=== PATIENT | female | born 1955 | race Caucasian/White ===

== ENCOUNTER 2017-01-26 14:00 | Observation (INO) ==
[2017-01-26] MEDS ORDERED: Ondansetron 4 MG/2 ML VIAL IVP PRN (16:43)
[2017-01-26] MEDS ORDERED: Nitroglycerin 0.4 MG TAB.SUBL SL PRN (16:43)
[2017-01-26] MEDS ORDERED: *HR* Morphine 2 MG/ML SYRINGE IVP PRN (16:43)
[2017-01-26] MEDS: *HR* Enoxaparin 120 MG/0.8 ML SYRINGE SQ SCH (18:37)
[2017-01-26] MEDS: *HR* Metformin 500 MG TABLET PO SCH (18:37)
[2017-01-26] MEDS ORDERED: Metoprolol XL (24 HR) Succ 25 MG TAB.ER.24H PO SCH (21:00)
[2017-01-27 01:47] LABS: Basophils # 0.1 K/mcL (0.0-0.2); Basophils % 0.6 %; Eosinophils # 0.2 K/mcL (0.0-0.6); Eosinophils % 2.7 %; Hemoglobin 14.6 g/dL (11.5-15.4); Immature Granulocytes % 0.1 % (0-4); Lymphocytes # 3.6 K/mcL (0.6-4.6); Lymphocytes % 42.7 %; Mean Corpuscular Hemoglobin 28.8 pg (28.0-33.3); Mean Corpuscular Volume 84.8 fL (83.0-100.0); Mean Platelet Volume 9.5 fL (9.4-12.4); Monocytes # 0.6 K/mcL (0.0-1.3); Monocytes % 6.9 %; Neutrophils # 3.9 K/mcL (1.6-8.9); Platelet Count 246 K/mcL (140-400); Red Blood Count 5.07 M/mcL (3.82-4.97); Red Cell Distribution Width 13.4 % (11.5-14.5)
[2017-01-27 01:59] LABS: BUN/Creatinine Ratio 15 (6-26); Blood Urea Nitrogen 15 mg/dL (7-20); Calcium 9.4 mg/dL (8.6-10.8); Carbon Dioxide 31 mEq/L (19-29); Chloride 99 mEq/L (98-109); Glucose 117 mg/dL (70-99); Osmolality,Calculated 288 (280-300); Potassium 3.7 mEq/L (3.5-4.5); Sodium 138 mEq/L (136-145); eGFR For African Americans > 60 (> 60); eGFR For Non-African Americans 56 (> 60)
[2017-01-27] MEDS: *HR* Enoxaparin 120 MG/0.8 ML SYRINGE SQ SCH (05:19)
[2017-01-27] MEDS: *HR* Metformin 500 MG TABLET PO SCH (08:18)
--- NOTE | 2017-01-27 08:44 | Cardiology History & Physical ---
Date of Encounter: 01/27/17 Time of Encounter: 08:40 Assessment and Plan (1) Unstable angina Current Visit: Yes Status: Acute Serial troponin ruled out [place]. Plan for stress test for risk stratification with multiple CV risk factors. If stress test is abnormal, plan on [facility] early tomorrow morning. A/R/B of [facility] discussed including 1% chance of TX//CVA/ CABG/TONI/bleeding. Patient aware and agreeable with plan. The assessment and plan as outlined above was discussed with the patient and/or family members who expressed understanding and agreement. All questions were answered. (2) HTN (hypertension) Current Visit: No Status: Chronic controlled The assessment and plan as outlined above was discussed with the patient and/or family members who expressed understanding and agreement. All questions were answered. Qualifiers: Hypertension type: essential hypertension Qualified Code(s): I10 - Essential (primary) hypertension (3) Diabetes Current Visit: No Status: Chronic qid fs ssi The assessment and plan as outlined above was discussed with the patient and/or family members who expressed understanding and agreement. All questions were answered. Qualifiers: Diabetes mellitus type: type 2 Diabetes mellitus complication status: without complication Diabetes mellitus skilled nursing insulin use: without skilled nursing use Qualified Code(s): E11.9 - Type 2 diabetes mellitus without complications History of Present Illness Chief complaint: chest discomfort on exertion HPI: Ms. Brewer is a 61 year old female with no previous cardiac history but CV RF of diabetes, HTN, dyslipidemia presents with severe retrosternal left chest pressure with mild exertion. Improved with NTG and no radiation of the pain. It is associated with headache and diaphoresis. This has been slowly worsening over last couple of months. She denies history of smoking. She denies syncope. She was at [facility] but unable to be discharged because of significant symptoms preventing her from ambulating. [facility] does not have stress test capability over the weekend and no roving tester laboratory. Her physician there thought her symptoms were severe and could not be discharged, so recommended that she be transferred to a facility that could provide better workup of her symptoms. Of note, she had 2 troponin at [facility] that were normal. Past Med Surg Social Fam HX - Past Medical History Medical history: diabetes, hyperlipidemia, hypertension Psychiatric history: anxiety, depression - Past Surgical History Surgical History: , herniorrhaphy, hysterectomy, other - Social History Smoking Status: Never smoker Smokeless Tobacco Status: No Alcohol use: occasionally Drug use: none - Family History Mother Adopted: No Living Status: Cause of : stroke Hx Family Cardiac Disorders: Yes (hypertension) Medications and Allergies Losartan [Cozaar] 25 mg PO HS 02/25/15 [History] Triamterene/HCTZ 37.5/25mg [Dyazide] 1 each PO QAM 02/25/15 [History] metFORMIN [Glucophage] 500 mg PO TID 02/25/15 [History] Aspirin 81 mg PO DAILY 06/01/16 [History] Atorvastatin [Lipitor] 40 mg PO HS 06/01/16 [History] Cilostazol [Pletal] 100 mg PO BID 06/01/16 [History] GlipiZIDE [Glipizide ER] 10 mg PO BID 06/01/16 [History] Metoprolol XL (24 HR) Succ [Toprol Xl] 25 mg PO HS 06/01/16 [History] Nitroglycerin [Nitrostat] 0.4 mg SL Q5M PRN 06/01/16 [History] [place]'s Wort 300 mg PO TID 06/01/16 [History] DULoxetine [Cymbalta] 20 mg PO DAILY 01/26/17 [History] Duloxetine HCl [Cymbalta] 60 mg PO DAILY 01/26/17 [History] [place]-3/Dha/Epa/Fish Oil [Fish Oil 1,000 mg Softgel] 1 cap PO DAILY 01/26/17 [ History] Pregabalin [Lyrica] 50 mg PO BID 01/26/17 [History] Vitamin E Acetate [Vitamin E] 400 unit PO DAILY 01/26/17 [History] Allergies aspartame Adverse Reaction (Verified 06/01/16 10:21) Headache gabapentin Adverse Reaction (Verified 01/26/17 17:10) Gastrointestinal Upset All Systems Review: A 10-system review of systems was performed and is negative for pertinent findings except as documented above in the HPI. - Constitutional Constitutional: no chills, no fever(s) - EENT Eyes: no blurred vision, no loss of vision Nose, mouth and throat: no bleeding gums, no epistaxis - Cardiovascular Cardiovascular: chest pain with exertion, dyspnea on exertion - Respiratory Respiratory: no hemoptysis, no wheezing - Gastrointestinal Gastrointestinal: no hematemesis, no hematochezia - Genitourinary Genitourinary: no hematuria, no nocturia - Musculoskeletal Musculoskeletal: no arthralgias, no myalgias - Integumentary Integumentary: no erythema, no rash - Neurological Neurological: no abnormal speech, no memory loss - Psychiatric Psychiatric: no anxiety, no depression - Hematological/Lymphatic Hematologic/Lymphatic: no easy bleeding, no easy bruising Physical Examination Vital Signs, Last 4 Hours Temp Pulse Resp BP Pulse Ox 01/27/17 06:44 98.8 F 74 16 114/68 98 General: Conversant HEENT: Atraumatic Neck: No JVD Cardiac: Reg Rate and Rhythm Lungs: Normal Breath Sounds Neuro: Alert and responsive Abdomen: Soft Skin: No rashes noted on visualized skin Musculoskeletal: No Chest Wall Tenderness Extremities: No Edema Results 01/27/17 01:21 01/27/17 01:21 Lab Results 01/27/17 01/27/17 01:21 01:21 WBC 8.4 Hgb 14.6 Hct 43.0 Plt Count 246 Sodium 138 Potassium 3.7 Chloride 99 Carbon Dioxide 31 H BUN 15 Creatinine 1.01 Glucose 117 H Calcium 9.4 - EKG Interpretation EKG results cardiology: personally reviewed, normal ECG, no diagnostic ischemia
[2017-01-27] MEDS ORDERED: Aspirin 81 MG TAB.CHEW PO SCH (09:00)
[2017-01-27] MEDS ORDERED: D5% in Water 1,000 ML IVC PRN (09:45)
[2017-01-27] MEDS ORDERED: Dextrose Gel 15 GM PO PRN ×2 (09:45)
[2017-01-27] MEDS ORDERED: *HR* Dextrose 50 % in Water (Syg) 50 ML SYRINGE IVP PRN (09:45)
[2017-01-27 11:08] VITALS: BP 118/73
[2017-01-27] MEDS ORDERED: Insulin LISPRO 300 UNITS/3 ML VIAL SQ SCH ×2 (11:30→21:00)
--- NOTE | 2017-01-27 12:16 | Nuclear Medicine Stress Report ---
Exercise Nuclear Stress Name: Chata Brewer Date of Study: 01/27/2017 Date: 1955 Ht: 66.0 in Medical Record#: [id number] Age: 61 Wt: 235.0 lb Gender: Female Order #: [id number] Location: [facility] OP Room: [facility] Supervising Provider: Hiram Barriga CNP Reading Physician: Marino López MD, [facility] Ordering Physician: Marino López MD, [facility] Primary Care Physician: Sunshine Jean CNP Stress Technologist: Nohemy Mclaughlin RRT [place] Pumper: Bowen Contreras Indications: Chest Pain Impression: Perfusion imaging was negative for ischemia or infarct. Pharmacologic ECG was non diagnostic for ischemia. No arrhythmias noted with stress. Gated EF = >70%. There is no evidence of TID. History: Hypertension Diabetes Hypercholesteremia Stress Test Summary: Stress Test Type: Treadmill Protocol: Marino Baseline Information: Initial Heart Rate: 78 Blood Pressure: 108/64 Stress Information: Stress Time: 4 min 38 sec Test Terminated Due to (primary): Dyspnea Maximum Blood Pressure: 138/90 Maximum Heart Rate: 142 Percent Maximum Heart Rate Achieved: 89 Double Product: [id number] METS Reached: 7 Symptoms: Shortness of breath, weakness Nuclear Summary: SPECT myocardial perfusion imaging using Tc99m Sestamibi given intravenously was performed at rest and following cardiac stress testing. The resting images were obtained following initial dose of 11.8 mCi. Following stress an additional dose of 34.9 mCi was given at peak exercise or 30 seconds post regadenoson infusion. Medication Given: Time Medication Dose Units Route Findings: Stress Note * Resting ECG demonstrated normal sinus rhythm. * No baseline arrhythmias were noted. * Pharmacologic stress ECG is non diagnostic for ischemia due to failure to reach target heartrate. * No arrhythmias were noted during stress. Hemodynamic responses * Normal hemodynamic responses to pharmacologic stress. Study Quality * Study quality is average. Gated EF > 70% * Gated EF > 70%. Left Ventricle * The left ventricle is not dilated. NORMALS * Normal wall motion. * Normal segmental perfusion in stress. * Normal Segmental Perfusion in rest. TID * No evidence of transient ischemic dilatation. Updated by Marino López MD, [facility] on 01/27/2017 12:09:06 PM electronically signed on 01/27/2017 12:09:27 PM with status of Final
[2017-01-27] MEDS ORDERED: Isosorbide MONOnitrate (24 HR) 60 MG TAB.ER.24H PO SCH (12:30)
--- NOTE | 2017-01-27 14:40 | Discharge Summary ---
Date of Encounter: 01/27/17 Time of Encounter: 14:30 - Discharge Diagnosis (1) Unstable angina Priority: Primary (n) Status: Acute Comments: Ruled out for [place]. Stress test shows no ischemia or TID. Start Imdur, continue aspirin and followup in clinic. (2) HTN (hypertension) Priority: Secondary (n) Status: Chronic Comments: controlled Qualifiers: Hypertension type: essential hypertension Qualified Code(s): I10 - Essential (primary) hypertension (3) Diabetes Priority: Secondary (n) Status: Chronic Comments: Resume home meds Qualifiers: Diabetes mellitus type: type 2 Diabetes mellitus complication status: without complication Diabetes mellitus mcc insulin use: without manager long term care use Qualified Code(s): E11.9 - Type 2 diabetes mellitus without complications - Discharge Medications Home Medications: Losartan [Cozaar] 25 mg PO HS 02/25/15 [History] Triamterene/HCTZ 37.5/25mg [Dyazide] 1 each PO QAM 02/25/15 [History] metFORMIN [Glucophage] 500 mg PO TID 02/25/15 [History] Aspirin 81 mg PO DAILY 06/01/16 [History] Atorvastatin [Lipitor] 40 mg PO HS 06/01/16 [History] Cilostazol [Pletal] 100 mg PO BID 06/01/16 [History] GlipiZIDE [Glipizide ER] 10 mg PO BID 06/01/16 [History] Metoprolol XL (24 HR) Succ [Toprol Xl] 25 mg PO HS 06/01/16 [History] Nitroglycerin [Nitrostat] 0.4 mg SL Q5M PRN 06/01/16 [History] [place]'s Wort 300 mg PO TID 06/01/16 [History] DULoxetine [Cymbalta] 20 mg PO DAILY 01/26/17 [History] Duloxetine HCl [Cymbalta] 60 mg PO DAILY 01/26/17 [History] [place]-3/Dha/Epa/Fish Oil [Fish Oil 1,000 mg Softgel] 1 cap PO DAILY 01/26/17 [ History] Pregabalin [Lyrica] 50 mg PO BID 01/26/17 [History] Vitamin E Acetate [Vitamin E] 400 unit PO DAILY 01/26/17 [History] Isosorbide MONOnitrate (24 HR) [Imdur] 60 mg PO DAILY #0 01/27/17 [Rx] Allergies/Adverse Reactions: Allergies aspartame Adverse Reaction (Verified 06/01/16 10:21) Headache gabapentin Adverse Reaction (Verified 01/26/17 17:10) Gastrointestinal Upset Procedures/tests Complete & Pending: Procedures Performed prior 72 hours Category Date Time Status NM leelee perf SPECT multi [NM] Routine Exams 01/27/17 09:20 Taken ECG 12 lead ECG [ECG] Routine Y 01/26/17 16:43 Ordered ECG 12 lead ECG [ECG] Routine Y 01/27/17 07:00 Ordered ECG 12 lead ECG [ECG] Stat Y 01/26/17 16:43 Completed EV echocardiogram Routine Y 01/27/17 10:00 Completed SP exercise nuclear stress Routine Y 01/26/17 16:46 Completed Date of admission: 01/26/17 16:04 Primary care physician: Sunshine Jean Consults: 01/26/17 16:43 Consult to Cardiac Rehabilitation-Phase1 [CONS] Routine Comment: Reason for Consult: AMI Call Completed: Yes Consult to Nurse Navigator [CONS] Routine Comment: Discharging clinician: Marino López Anticipated date of discharge: 01/27/17 - Patient Status Disposition: Home, Self-Care Condition: Good Functional capacity at discharge: independent ambulation Overall status at discharge: patient is back to baseline - Discharge Instructions Follow Up With: Sunshine Jean, MIKA [Primary Care Provider] - Additional Instructions: FOLLOW UP WITH PRIMARY IN 1- 2 WEEKS. - Diet and Activity Diet: diabetic diet - Hospital Course Hospital course: Ms. Brewer is a 61 year old female - Time Spent with Patient Total time spent providing and/or coordinating discharge services: Greater than 30 minutes Physical Examination General: Conversant HEENT: Atraumatic, Normocephaly Neck: No JVD Cardiac: Reg Rate and Rhythm Lungs: Normal Breath Sounds Neuro: Alert and responsive Abdomen: Soft Skin: No rashes noted on visualized skin Musculoskeletal: No Chest Wall Tenderness Extremities: No Edema
--- NOTE | 2017-01-27 19:01 | Electrocardiograph Report ---
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
== END 2017-01-27 15:48 | disposition home or self-care (01) ==
LOC: 3NENU
PROVIDERS: ADMIT Emergency Medicine; ATTEND Emergency Medicine

== ENCOUNTER 2017-08-17 12:35 | Observation (INO) ==
--- NOTE | 2017-08-17 13:07 | Emergency Department Note ---
Disposition Clinical Impression: Unstable angina, Chest pain Disposition: Admitted As Inpatient General Adult [facility] - General Chief complaint: ED Chest Pain Stated complaint: Chest pain Time Seen by Provider: 08/17/17 12:56 Source: patient Limitations: no limitations - History of Present Illness Pain Scale: 4 - Related Data Home Medications Medication Instructions Recorded Confirmed Losartan [Cozaar] 25 mg PO HS 02/25/15 08/17/17 Triamterene/HCTZ 37.5/25mg 1 tab PO QAM 02/25/15 08/17/17 [Dyazide] metFORMIN [Glucophage] 500 mg PO TID 02/25/15 08/17/17 Aspirin 81 mg PO DAILY 06/01/16 08/17/17 Atorvastatin [Lipitor] 40 mg PO HS 06/01/16 08/17/17 Cilostazol [Pletal] 100 mg PO BID 06/01/16 08/17/17 Metoprolol XL (24 HR) Succ [Toprol 25 mg PO HS 06/01/16 08/17/17 Xl] Altag[place]ia's Wort 300 mg PO TID 06/01/16 08/17/17 glipiZIDE [Glipizide ER] 10 mg PO BID 06/01/16 08/17/17 DULoxetine [Cymbalta] 20 mg PO HS 01/26/17 08/17/17 Duloxetine HCl [Cymbalta] 60 mg PO QAM 01/26/17 08/17/17 [place]-3/Dha/Epa/Fish Oil [Fish Oil 1 cap PO DAILY 01/26/17 08/17/17 1,000 mg Softgel] Pregabalin [Lyrica] 50 mg PO BID 01/26/17 08/17/17 Vitamin E Acetate [Vitamin E] 400 unit PO DAILY 01/26/17 08/17/17 Previous Rx's Medication Instructions Recorded Isosorbide MONOnitrate (24 HR) 60 mg PO DAILY #0 01/27/17 [Imdur] Clopidogrel [Plavix] 75 mg PO DAILY #30 tablet 08/09/17 Allergies Allergy/AdvReac Type Severity Reaction Status Date / Time aspartame AdvReac Headache Verified 06/01/16 10:21 gabapentin AdvReac Gastrointestinal Verified 01/26/17 17:10 Upset Past Medical History - Past Medical History Medical history: Reports: diabetes, hyperlipidemia, hypertension Surgical history: Reports: , herniorrhaphy, hysterectomy, other Psychiatric history: Reports: anxiety, depression 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 - Social History Smoking Status: Never smoker Smokeless Tobacco Status: No Alcohol use: Reports: occasionally Drug use: Reports: none Physical Exam - General Limitations: no limitations General appearance: alert Course Vital Signs Temperature 98.0 F 08/17/17 12:52 Pulse Rate 91 08/17/17 12:52 Respiratory Rate 18 08/17/17 12:52 Blood Pressure 120/75 08/17/17 12:52 O2 Sat by Pulse Oximetry 95 08/17/17 12:52 Temperature 98.1 F 08/17/17 18:55 Pulse Rate 82 08/17/17 18:55 Respiratory Rate 16 08/17/17 18:55 Blood Pressure 108/69 08/17/17 18:55 O2 Sat by Pulse Oximetry 96 08/17/17 18:55 Oxygen Delivery Oxygen Delivery Room Air Medical Decision Making - Lab Data Result diagrams: 08/17/17 13:11 08/17/17 13:11 Lab Results 08/17/17 08/17/17 08/17/17 Range/Units 13:11 13:11 13:11 WBC 8.3 (4.3-11.1) K/mcL RBC 5.14 H (3.82-4.97) M/mcL Hgb 14.7 (11.5-15.4) g/dL Hct 43.0 (35.3-44.9) % MCV 83.7 (83.0-100.0) fL MCH 28.6 (28.0-33.3) pg MCHC 34.2 (31.6-35.5) g/dL RDW 13.4 (11.5-14.5) % Plt Count 301 (140-400) K/mcL MPV 9.3 L (9.4-12.4) fL Immature Gran % 0.4 (0-4) % Seg Neutrophils % 63.7 % Lymphocytes % 25.4 % Monocytes % 5.9 % Eosinophils % 4.1 % Basophils % 0.5 % Neutrophils # 5.3 (1.6-8.9) K/mcL Lymphocytes # 2.1 (0.6-4.6) K/mcL Monocytes # 0.5 (0.0-1.3) K/mcL Eosinophils # 0.3 (0.0-0.6) K/mcL Basophils # 0.0 (0.0-0.2) K/mcL Sodium 138 (136-145) mEq/L Potassium 4.1 (3.5-5.1) mEq/L Chloride 103 (98-107) mEq/L Carbon Dioxide 25 (23-29) mEq/L BUN 18 (8-23) mg/dL Creatinine 0.81 (0.60-1.20) mg/dL Est GFR ( Amer) > 60 (> 60) Est GFR (Non-Af Amer) > 60 (> 60) BUN/Creatinine Ratio 22 (6-26) Glucose 106 H (70-105) mg/dL Calculated Osmolality 288 (280-300) Calcium 9.9 (8.6-10.3) mg/dL Troponin I < 0.03 (< 0.04) ng/mL Attestation Statement - Attestation Attestation: I examined this patient and my medical decision-making was reviewed with the Resident Physician. I agree with the documented findings, disposition and treatment plan as described except to the extent set forth below. [id number] time provided Patient presents with chest discomfort. She appears in no acute distress on exam. EKG reviewed by me upon arrival. I did review the transcribed report of her cardiac catheterization in which a drug eluding stent was placed to her mid LAD on 08/09/17. The patient was seen in conjunction with the resident physician Dr. Hinton
[2017-08-17] MEDS ORDERED: Aspirin 81 MG TAB.CHEW PO STA (13:09)
[2017-08-17] MEDS ORDERED: Nitroglycerin 0.4 MG TAB.SUBL SL PRN (13:09)
[2017-08-17 13:23] LABS: Basophils % 0.5 %; Eosinophils # 0.3 K/mcL (0.0-0.6); Eosinophils % 4.1 %; Hemoglobin 14.7 g/dL (11.5-15.4); Immature Granulocytes % 0.4 % (0-4); Lymphocytes # 2.1 K/mcL (0.6-4.6); Lymphocytes % 25.4 %; Mean Corpuscular HGB Conc 34.2 g/dL (31.6-35.5); Mean Corpuscular Hemoglobin 28.6 pg (28.0-33.3); Mean Corpuscular Volume 83.7 fL (83.0-100.0); Mean Platelet Volume 9.3 fL (9.4-12.4); Monocytes # 0.5 K/mcL (0.0-1.3); Monocytes % 5.9 %; Neutrophils # 5.3 K/mcL (1.6-8.9); Platelet Count 301 K/mcL (140-400); Red Blood Count 5.14 M/mcL (3.82-4.97); Red Cell Distribution Width 13.4 % (11.5-14.5); Segmented Neutrophils % 63.7 %
--- NOTE | 2017-08-17 13:56 | Emergency Department Note ---
Disposition Clinical Impression: Unstable angina Chest pain Qualifiers: Chest pain type: unspecified Qualified Code(s): R07.9 - Chest pain, unspecified Disposition: Admitted As Inpatient Condition: Fair Time of Disposition: 15:00 Chest Pain HPI - General Chief Complaint: ED Chest Pain Stated Complaint: Chest pain Time Seen by Provider: 08/17/17 12:56 Source: patient Limitations: no limitations Vital Signs Reviewed: Yes Nursing Notes Reviewed: Yes - History of Present Illness HPI Narrative: 61-year-old female complains of chest pain started 3 days ago. Patient states chest pain is in the left chest pressure 6/10 and is fairly constant with activity and did resolve with rest after the first day, but came back and has been constant with worsening even when laying down. Patient states that just rolling over in bed and made her pain worse. Patient denies any radiation of pain to her neck or shoulders or arms. Patient states she has also been short of breath with the pain and currently is having blurry vision. Patient has a history of stent 1 place one week ago. Severity scale (1-10): 4 - Related Data Home Medications Medication Instructions Recorded Confirmed Losartan [Cozaar] 25 mg PO HS 02/25/15 08/17/17 Triamterene/HCTZ 37.5/25mg 1 tab PO QAM 02/25/15 08/17/17 [Dyazide] metFORMIN [Glucophage] 500 mg PO TID 02/25/15 08/17/17 Aspirin 81 mg PO DAILY 06/01/16 08/17/17 Atorvastatin [Lipitor] 40 mg PO HS 06/01/16 08/17/17 Cilostazol [Pletal] 100 mg PO BID 06/01/16 08/17/17 Metoprolol XL (24 HR) Succ [Toprol 25 mg PO HS 06/01/16 08/17/17 Xl] Altagracia's Wort 300 mg PO TID 06/01/16 08/17/17 glipiZIDE [Glipizide ER] 10 mg PO BID 06/01/16 08/17/17 DULoxetine [Cymbalta] 20 mg PO HS 01/26/17 08/17/17 Duloxetine HCl [Cymbalta] 60 mg PO QAM 01/26/17 08/17/17 [place]-3/Dha/Epa/Fish Oil [Fish Oil 1 cap PO DAILY 01/26/17 08/17/17 1,000 mg Softgel] Pregabalin [Lyrica] 50 mg PO BID 01/26/17 08/17/17 Vitamin E Acetate [Vitamin E] 400 unit PO DAILY 01/26/17 08/17/17 Previous Rx's Medication Instructions Recorded Isosorbide MONOnitrate (24 HR) 60 mg PO DAILY #0 01/27/17 [Imdur] Clopidogrel [Plavix] 75 mg PO DAILY #30 tablet 08/09/17 Allergies Allergy/AdvReac Type Severity Reaction Status Date / Time aspartame AdvReac Headache Verified 06/01/16 10:21 gabapentin AdvReac Gastrointestinal Verified 01/26/17 17:10 Upset All systems ED: reviewed and negative except as stated. Review of Systems: As Per HPI Constitutional: Denies: fever, chills ENT ED: Denies: congestion Cardiovascular: Reports: chest pain. 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 - Social History Smoking Status: Never smoker Alcohol use: Reports: occasionally Drug use: Reports: none Physical Exam Vital Signs Temperature 98.0 F 08/17/17 12:52 Pulse Rate 91 08/17/17 12:52 Respiratory Rate 18 08/17/17 12:52 Blood Pressure 120/75 08/17/17 12:52 O2 Sat by Pulse Oximetry 95 08/17/17 12:52 Temperature 98.0 F 08/18/17 03:41 Pulse Rate 84 08/18/17 03:41 Respiratory Rate 16 08/18/17 03:41 Blood Pressure 116/75 08/18/17 03:41 O2 Sat by Pulse Oximetry 96 08/18/17 03:41 Oxygen Delivery Oxygen Delivery Room Air CONSTITUTIONAL: Well-appearing; well-nourished; A&O X 3, in distress secondary to chest discomfort HEAD: Normocephalic; atraumatic EYES: PERRL, no scleral icterus NOSE: The nose is normal in appearance without rhinorrhea NECK: No JVD or distended neck veins RESP: Normal chest excursion with respiration; breath sounds clear and equal bilaterally; no wheezes, rhonchi, or rales CARD: Regular rhythm, without murmurs, rub or gallop ABD: Non-distended; non-tender, soft, without rigidity, rebound or guarding,no pulsatile mass CHEST: No pain with palpation SKIN: Normal for age and race; warm and dry without diaphoresis ; no apparent lesions EXTREMITIES: Pulses are 2 plus and equal times 4 extremities, no peripheral edema or calf muscle pain - General Limitations: no limitations General appearance: alert Course - Consultations Consultation #1: Consult with cardiology: Dr. Horn states he will see the patient in consult. He has been updated on patient's current condition. Time: 14:21 Vital Signs Temperature 98.0 F 08/17/17 12:52 Pulse Rate 91 08/17/17 12:52 Respiratory Rate 18 08/17/17 12:52 Blood Pressure 120/75 08/17/17 12:52 O2 Sat by Pulse Oximetry 95 08/17/17 12:52 Temperature 98.2 F 08/18/17 19:38 Pulse Rate 84 08/18/17 19:38 Respiratory Rate 16 08/18/17 19:38 Blood Pressure 129/81 08/18/17 19:38 O2 Sat by Pulse Oximetry 99 08/18/17 19:38 Oxygen Delivery Oxygen Delivery Room Air Chest Pain - MDM Narrative Medical decision making narrative: Patient who presents with chest pain with concerns for possible ACS/AZ with history of recent drug-eluting stent stent to the mid LAD placed one week ago by Dr. López of cardiology. Patient is currently on Plavix. PE, and aortic dissection have also been considered but patient is currently low risk for PE under Wells criteria, and patient has no pulse discrepancies, radiation of pain through to her back or tearing quality or any widening of her mediastinum or obscuring of aortic knob. Patient has a heart score of 4. Patient's lab work was negative for elevated troponin, or other clinically relevant laboratory abnormalities. Patient's chest x-ray showed no cardiopulmonary abnormalities. Patient's pain symptoms were reduced with nitroglycerin trial to 0/10 and nitroglycerin glycerin paste was applied. I have also consulted Dr. Horn who agrees with my decision to admit to medicine for unstable angina and patient will be seen after she is admitted. Patient understands and agrees to treatment plan for admission and is currently in stable condition. And pain- free Patient was admitted to Dr. Toney Chance the hospitalist in stable condition. - Lab Data Lab results reviewed: Yes I reviewed the patient's lab results. Lab results narrative: Short CBC 08/18/17 08/17/17 Range/Units 04:58 13:11 WBC 7.0 8.3 (4.3-11.1) K/mcL Hgb 13.7 14.7 (11.5-15.4) g/dL Hct 41.3 43.0 (35.3-44.9) % Plt Count 254 301 (140-400) K/mcL Neutrophils # 4.0 5.3 (1.6-8.9) K/mcL BMP 08/18/17 08/17/17 Range/Units 04:58 13:11 Sodium 139 138 (136-145) mEq/L Potassium 4.2 4.1 (3.5-5.1) mEq/L Chloride 103 103 (98-107) mEq/L Carbon Dioxide 29 25 (23-29) mEq/L BUN 19 18 (8-23) mg/dL Creatinine 0.94 0.81 (0.60-1.20) mg/dL Glucose 142 H 106 H (70-105) mg/dL Calcium 9.6 9.9 (8.6-10.3) mg/dL Cardiac Enzymes 08/18/17 08/17/17 08/17/17 Range/Units 04:58 22:21 17:34 Troponin I < 0.03 < 0.03 < 0.03 (< 0.04) ng/mL 08/17/17 Range/Units 13:11 Troponin I < 0.03 (< 0.04) ng/mL Result diagrams: 08/18/17 04:58 08/18/17 04:58 Lab Results 08/17/17 08/17/17 08/17/17 Range/Units 13:11 13:11 13:11 WBC 8.3 (4.3-11.1) K/mcL RBC 5.14 H (3.82-4.97) M/mcL Hgb 14.7 (11.5-15.4) g/dL Hct 43.0 (35.3-44.9) % MCV 83.7 (83.0-100.0) fL MCH 28.6 (28.0-33.3) pg MCHC 34.2 (31.6-35.5) g/dL RDW 13.4 (11.5-14.5) % Plt Count 301 (140-400) K/mcL MPV 9.3 L (9.4-12.4) fL Immature Gran % 0.4 (0-4) % Seg Neutrophils % 63.7 % Lymphocytes % 25.4 % Monocytes % 5.9 % Eosinophils % 4.1 % Basophils % 0.5 % Neutrophils # 5.3 (1.6-8.9) K/mcL Lymphocytes # 2.1 (0.6-4.6) K/mcL Monocytes # 0.5 (0.0-1.3) K/mcL Eosinophils # 0.3 (0.0-0.6) K/mcL Basophils # 0.0 (0.0-0.2) K/mcL Sodium 138 (136-145) mEq/L Potassium 4.1 (3.5-5.1) mEq/L Chloride 103 (98-107) mEq/L Carbon Dioxide 25 (23-29) mEq/L BUN 18 (8-23) mg/dL Creatinine 0.81 (0.60-1.20) mg/dL Est GFR ( Amer) > 60 (> 60) Est GFR (Non-Af Amer) > 60 (> 60) BUN/Creatinine Ratio 22 (6-26) Glucose 106 H (70-105) mg/dL Calculated Osmolality 288 (280-300) Calcium 9.9 (8.6-10.3) mg/dL Troponin I < 0.03 (< 0.04) ng/mL - Radiology Data Radiology results reviewed: Yes I reviewed the patient's radiology results. Chest X-Ray 08/17/17 12:56 IMPRESSION: No active cardiopulmonary disease D/ / Kalyan Hector MD / Kalyan Hector MD Interpreting Provider: Kalyan Hector MD - EKG Data EKG attestation: Yes I reviewed and interpreted this EKG. EKG results narrative: EKG taken 2018 and appropriately shows sinus rhythm at a rate of 93 beats minute with no acute ST elevations or depressions in these, widening or QT prolongation. When compared to previous EKG there are: no significant changes (08/09/2017) Interpretation: unchanged when compared to prior tracing (date) Heart Score - Score History: Moderately Suspicious EKG: Normal Age: 45-65 Risk Factors: Equal/Greater than 3 risk factor or history of atherosclerotic disease Troponin: Less than normal limit HEART Score Total: 4
[2017-08-17 14:02] LABS: BUN/Creatinine Ratio 22 (6-26); Blood Urea Nitrogen 18 mg/dL (8-23); Calcium 9.9 mg/dL (8.6-10.3); Carbon Dioxide 25 mEq/L (23-29); Chloride 103 mEq/L (98-107); Glucose 106 mg/dL (70-105); Osmolality,Calculated 288 (280-300); Potassium 4.1 mEq/L (3.5-5.1); Sodium 138 mEq/L (136-145); eGFR For African Americans > 60 (> 60); eGFR For Non-African Americans > 60 (> 60)
[2017-08-17] MEDS ORDERED: Nitroglycerin 1 INCH/GM PACKET TP ONE (14:16)
--- NOTE | 2017-08-17 16:35 | Internal Med History&Physical ---
Date of Encounter: 08/17/17 Time of Encounter: 16:30 Assessment and Plan (1) Chest pain Current visit: Yes Status: Acute -Patient had a recent cardiac catheter on 08/09/17 which showed severe one-vessel coronary arterial disease and DIMAS was place in the mid left anterior descending coronary artery. -In the ER, patient was found to have negative troponin 1 -Will monitor on telemetry and follow serial troponins. -Cardiology consulted and appreciate recommendations.. Qualifiers: Chest pain type: unspecified Qualified Code(s): R07.9 - Chest pain, unspecified (2) Diabetes Current visit: No Status: Chronic -Will hold oral diabetic medications and cover with slight scale insulin Qualifiers: Diabetes mellitus type: type 2 Qualified Code(s): E11.9 - Type 2 diabetes mellitus without complications (3) HLD (hyperlipidemia) Current visit: No Status: Chronic Continue statin Qualifiers: Hyperlipidemia type: unspecified Qualified Code(s): E78.5 - Hyperlipidemia , unspecified (4) HTN (hypertension) Current visit: No Status: Chronic Will continue lisinopril hydrochlorothiazide and Norvasc Qualifiers: Hypertension type: essential hypertension Qualified Code(s): I10 - Essential (primary) hypertension (5) Obesity Current visit: Yes Status: Acute BMI 37.1; lifestyle modifications Qualifiers: Body mass index: BMI 37.0-37.9 Qualified Code(s): E66.9 - Obesity, unspecified; Z68.37 - Body mass index (BMI) 37.0-37.9, adult; Z68.37 - Body mass index (BMI) 37.0-37.9, adult (6) DVT prophylaxis Current visit: No Status: Acute Subcutaneous heparin Internal Medicine - H&P: HPI Chief complaint: Chest pressure Admitted From: Home Plans for Post Hospital Care: Home History of present illness: Patient is a 61-year-old female with past medical history significant for coronary artery disease, hypertension, hyperlipidemia and diabetes who presents to the ER on 08/17/17 with chest pain. Patient reports a 3 day history of substernal chest pain which occurs with exertion and is relieved with rest. Patient reports the severity of 5 out of 10 with radiation to her left axilla. She reports associated symptoms of shortness of breath. Patient had a recent cardiac catheter on 08/09/17 which showed severe one-vessel coronary arterial disease and DIMAS was place in the mid left anterior descending coronary artery. In the ER, patient was found to have negative troponin 1. Patient will be admitted to the medical surgical floor for ACS rule out. Past Med Surg Social Fam HX - Past Medical History Medical history: diabetes, hyperlipidemia, hypertension Psychiatric history: anxiety, depression - Past Surgical History Surgical History: , herniorrhaphy, hysterectomy, other - Social History Smoking Status: Never smoker Smokeless Tobacco Status: No Alcohol use: occasionally Drug use: none - Family History Mother Adopted: No Living Status: Hx Family Cardiac Disorders: Yes (hypertension) Internal Medicine - H&P: Meds Losartan [Cozaar] 25 mg PO HS 02/25/15 [History] Triamterene/HCTZ 37.5/25mg [Dyazide] 1 tab PO QAM 02/25/15 [History] metFORMIN [Glucophage] 500 mg PO TID 02/25/15 [History] Aspirin 81 mg PO DAILY 06/01/16 [History] Atorvastatin [Lipitor] 40 mg PO HS 06/01/16 [History] Cilostazol [Pletal] 100 mg PO BID 06/01/16 [History] Metoprolol XL (24 HR) Succ [Toprol Xl] 25 mg PO HS 06/01/16 [History] Altagracia's Wort 300 mg PO TID 06/01/16 [History] glipiZIDE [Glipizide ER] 10 mg PO BID 06/01/16 [History] DULoxetine [Cymbalta] 20 mg PO HS 01/26/17 [History] Duloxetine HCl [Cymbalta] 60 mg PO QAM 01/26/17 [History] [place]-3/Dha/Epa/Fish Oil [Fish Oil 1,000 mg Softgel] 1 cap PO DAILY 01/26/17 [ History] Pregabalin [Lyrica] 50 mg PO BID 01/26/17 [History] Vitamin E Acetate [Vitamin E] 400 unit PO DAILY 01/26/17 [History] Isosorbide MONOnitrate (24 HR) [Imdur] 60 mg PO DAILY #0 01/27/17 [Rx] Clopidogrel [Plavix] 75 mg PO DAILY #30 tablet 08/09/17 [Rx] 3 Allergy/AdvReac Type Severity Reaction Status Date / Time aspartame AdvReac Headache Verified 06/01/16 10:21 gabapentin AdvReac Gastrointestinal Verified 01/26/17 17:10 Upset All Systems PM: A 10-system review of systems was performed and is negative for pertinent findings except as documented above in the HPI. - Constitutional Vitals: Temp Pulse Resp BP Pulse Ox 98.0 F 74 14 118/66 97 08/17/17 12:52 08/17/17 15:24 08/17/17 15:24 08/17/17 15:24 08/17/17 15:24 General appearance: Present: A&O X 3, no acute distress, answers questions appropriately - Eye Eye exam: Present: normal appearance - ENT ENT exam: Present: mucous membranes moist - Respiratory Respiratory exam: Present: CTAB. Absent: accessory muscle use, rales, rhonchi, wheezes - Cardiovascular Cardiovascular exam: Present: RRR, +S1, +S2. Absent: diastolic murmur, gallop, rubs, systolic murmur - GI/Abdominal GI/Abdominal exam: Present: normal bowel sounds, soft, no peritoneal signs. Absent: distended, tenderness - Extremities Exam Extremities exam: Absent: pedal edema - Neurological Exam Neurological exam: Present: oriented X3 - Psychiatric Psychiatric exam: Present: normal mood - Skin Skin exam: Present: normal color Internal Med - H&P Results - Labs CBC & Chem 7: 08/17/17 13:11 08/17/17 13:11
[2017-08-17] MEDS ORDERED: Naloxone 0.4 MG/ML INJ IVP PRN (16:40)
[2017-08-17] MEDS ORDERED: D5% in Water 1,000 ML IVC PRN (16:42)
[2017-08-17] MEDS ORDERED: Dextrose Gel 15 GM/37.5 ML TUBE PO PRN (16:42)
[2017-08-18 05:19] LABS: Hematocrit 41.3 % (35.3-44.9); Hemoglobin 13.7 g/dL (11.5-15.4); Immature Granulocytes % 0.1 % (0-4); Lymphocytes % 31.2 %; Mean Corpuscular HGB Conc 33.2 g/dL (31.6-35.5); Mean Corpuscular Hemoglobin 28.3 pg (28.0-33.3); Mean Corpuscular Volume 85.3 fL (83.0-100.0); Mean Platelet Volume 9.3 fL (9.4-12.4); Platelet Count 254 K/mcL (140-400); Red Blood Count 4.84 M/mcL (3.82-4.97); Red Cell Distribution Width 13.4 % (11.5-14.5)
[2017-08-18 05:20] LABS: Basophils % 0.4 %; Eosinophils # 0.3 K/mcL (0.0-0.6); Eosinophils % 3.7 %; Lymphocytes # 2.2 K/mcL (0.6-4.6); Monocytes # 0.5 K/mcL (0.0-1.3); Monocytes % 7.6 %
[2017-08-18 05:37] LABS: BUN/Creatinine Ratio 20 (6-26); Blood Urea Nitrogen 19 mg/dL (8-23); Calcium 9.6 mg/dL (8.6-10.3); Carbon Dioxide 29 mEq/L (23-29); Chloride 103 mEq/L (98-107); Glucose 142 mg/dL (70-105); Osmolality,Calculated 293 (280-300); Potassium 4.2 mEq/L (3.5-5.1); Sodium 139 mEq/L (136-145); eGFR For African Americans > 60 (> 60); eGFR For Non-African Americans > 60 (> 60)
[2017-08-18] MEDS: Isosorbide MONOnitrate (24 HR) 60 MG TAB.ER.24H PO SCH (07:38)
[2017-08-18] MEDS: Pregabalin 50 MG CAPSULE PO SCH ×2 (07:39→20:42)
[2017-08-18] MEDS: Aspirin 81 MG TAB.CHEW PO SCH (07:39)
[2017-08-18] MEDS: Insulin LISPRO 300 UNITS/3 ML VIAL SQ SCH ×3 (07:43→16:39)
--- NOTE | 2017-08-18 12:55 | Cardiology Consult Note ---
Date of Encounter: 08/19/17 Time of Encounter: 12:52 Assessment and Plan (1) CAD in [place] artery Current Visit: Yes Status: Acute [place] CAD, recent PCI to LAD (DIMAS x1). Returns with chest discomfort. No missed doses of medications. Troponin negative. Acute ECG changes. No current chest discomfort. Presentation is not c/w ACS. Recommend limited TTE. If no significant changes on TTE, then no further inpatient cardiac testing appears necessary. Importance of aspirin/plavix discussed - one year without interruption, aspirin indefintely. Continue statin/BB/ARB/Imdur therapy. All questions answered. (2) Chest pain Current Visit: No Status: Resolved Qualifiers: Chest pain type: unspecified Qualified Code(s): R07.9 - Chest pain, unspecified Discussion w patient/family: The assessment and plan as outlined above was discussed with the patient and/or family members who expressed understanding and agreement. All questions were answered. Thank you for involving us in the care of your patient. Please call with any questions. History of Present Illness Consult date: 08/18/17 Requesting physician: Mario Pandey Consult reason: Chest pain Chief complaint: Chest pain History of present illness: Ms. Brewer is a 61 year old female s/ PCI to LAD one week ago. Returns to hospital after developing symptoms at home. Reports she developed sudden visual changes while staring at phone. This lasted about 15 mintues. Subsequently she noticed chest discomfort. Pressure-like, no radiation. Performed ADLs (laundry), no change in intensity. Ultimately decided to come to hospital. [facility] 08/09/2017: LV nl. LAD mid 80% stenosid (DIMAS placed). Cx, OM1 nl. RCA mid 15% stenosis. Troponin negative x 4. Hemodynamics stable. No current chest discomfort. Past Med Surg Social Fam HX - Past Medical History Medical history: diabetes, hyperlipidemia, hypertension Psychiatric history: anxiety, depression - Past Surgical History Surgical History: , herniorrhaphy, hysterectomy, other - Social History Smoking Status: Never smoker Smokeless Tobacco Status: No Alcohol use: occasionally Drug use: none - Family History Father Living Status: Age at : 70 Cause of : [place] Hx Family Cardiac Disorders: Yes ([place]) Mother Adopted: No Living Status: Age at : 50 Hx Family Cardiac Disorders: No (HTN) Hx Family Neurologic Disorders: Yes (CVA) Medications and Allergies Losartan [Cozaar] 25 mg PO HS 02/25/15 [History] Triamterene/HCTZ 37.5/25mg [Dyazide] 1 tab PO QAM 02/25/15 [History] metFORMIN [Glucophage] 500 mg PO TID 02/25/15 [History] Aspirin 81 mg PO DAILY 06/01/16 [History] Atorvastatin [Lipitor] 40 mg PO HS 06/01/16 [History] Cilostazol [Pletal] 100 mg PO BID 06/01/16 [History] Metoprolol XL (24 HR) Succ [Toprol Xl] 25 mg PO HS 06/01/16 [History] Altagracia's Wort 300 mg PO TID 06/01/16 [History] glipiZIDE [Glipizide ER] 10 mg PO BID 06/01/16 [History] DULoxetine [Cymbalta] 20 mg PO HS 01/26/17 [History] Duloxetine HCl [Cymbalta] 60 mg PO QAM 01/26/17 [History] [place]-3/Dha/Epa/Fish Oil [Fish Oil 1,000 mg Softgel] 1 cap PO DAILY 01/26/17 [ History] Pregabalin [Lyrica] 50 mg PO BID 01/26/17 [History] Vitamin E Acetate [Vitamin E] 400 unit PO DAILY 01/26/17 [History] Isosorbide MONOnitrate (24 HR) [Imdur] 60 mg PO DAILY #0 01/27/17 [Rx] Clopidogrel [Plavix] 75 mg PO DAILY #30 tablet 08/09/17 [Rx] 3 Allergy/AdvReac Type Severity Reaction Status Date / Time aspartame AdvReac Headache Verified 06/01/16 10:21 gabapentin AdvReac Gastrointestinal Verified 01/26/17 17:10 Upset All Systems Review: A 10-system review of systems was performed and is negative for pertinent findings except as documented above in the HPI. - Cardiovascular Cardiovascular: as per HPI Physical Examination Vital Signs, Last 4 Hours Temp Pulse Resp BP Pulse Ox 08/18/17 12:12 97.6 F 80 16 147/78 97 General: Conversant, No Apparent Distress HEENT: Atraumatic, Normocephaly, Mucus Membranes Moist Neck: No JVD, Normal carotid pulses Cardiac: Reg Rate and Rhythm, Normal S1 and S2, No Murmur Lungs: Normal Breath Sounds, No Wheeze, Rales, Rhonchi Neuro: Alert and responsive, No focal deficits noted Abdomen: Soft, Non-Tender Skin: No rashes noted on visualized skin Musculoskeletal: No Chest Wall Tenderness Extremities: No Clubbing, No Cyanosis, No Edema Results 08/18/17 04:58 08/18/17 04:58 Lab Results 08/17/17 08/17/17 08/18/17 17:34 22:21 04:58 WBC 7.0 Hgb 13.7 Hct 41.3 Plt Count 254 Sodium Potassium Chloride Carbon Dioxide BUN Creatinine Glucose Calcium Troponin I < 0.03 < 0.03 08/18/17 08/18/17 04:58 04:58 WBC Hgb Hct Plt Count Sodium 139 Potassium 4.2 Chloride 103 Carbon Dioxide 29 BUN 19 Creatinine 0.94 Glucose 142 H Calcium 9.6 Troponin I < 0.03 - Imaging and Cardiology Echo: report reviewed Cardiac cath: report reviewed - EKG Interpretation EKG results cardiology: personally reviewed Consult Discharge Plan - Plan Referrals: Sunshine Jean [Primary Care Provider] -
--- NOTE | 2017-08-18 16:28 | Internal Med Progress Note ---
Date of Encounter: 08/18/17 Time of Encounter: 13:00 - Assessment and plan (1) Chest pain Current Visit: Yes Status: Acute Assessment and plan: Patient with past medical history significant for [place] CAD, recent PCI to LAD (DIMAS x1) who returns with chest pain. She suspects's chest pain secondary to stress No acute EKG changes and cardiac biomarkers are negative Cardiology following with recommendations for echocardiogram (pending) Qualifiers: Chest pain type: unspecified Qualified Code(s): R07.9 - Chest pain, unspecified (2) Diabetes Current Visit: No Status: Chronic Assessment and plan: Controlled; continue sliding scale insulin Qualifiers: Diabetes mellitus type: type 2 Qualified Code(s): E11.9 - Type 2 diabetes mellitus without complications (3) HLD (hyperlipidemia) Current Visit: No Status: Chronic Assessment and plan: Continue statin Qualifiers: Hyperlipidemia type: unspecified Qualified Code(s): E78.5 - Hyperlipidemia , unspecified (4) HTN (hypertension) Current Visit: No Status: Chronic Assessment and plan: Controlled; continue Dyazide, Toprol and Cozaar Qualifiers: Hypertension type: essential hypertension Qualified Code(s): I10 - Essential (primary) hypertension (5) Obesity Current Visit: Yes Status: Acute Assessment and plan: Lifestyle modifications Qualifiers: Body mass index: BMI 37.0-37.9 Qualified Code(s): E66.9 - Obesity, unspecified; Z68.37 - Body mass index (BMI) 37.0-37.9, adult; Z68.37 - Body mass index (BMI) 37.0-37.9, adult (6) Mood disorder Current Visit: Yes Status: Acute Assessment and plan: Continue home dose of Cymbalta (7) DVT prophylaxis Current Visit: No Status: Acute Assessment and plan: Heparin subcutaneous - Subjective Interval history: Patient was tearful this morning per nursing staff secondary to home stressors She suspects's chest pain secondary to stress Cardiac biomarkers are negative; echocardiogram pending - Constitutional Vitals: Temp Pulse Resp BP Pulse Ox 97.7 F 98 18 121/79 94 08/18/17 15:51 08/18/17 15:51 08/18/17 15:51 08/18/17 15:51 08/18/17 15:51 General appearance: Present: A&O X 3, no acute distress, answers questions appropriately - Respiratory Respiratory exam: Present: CTAB. Absent: accessory muscle use, rales, rhonchi, wheezes - Cardiovascular Cardiovascular exam: Present: RRR, +S1, +S2. Absent: diastolic murmur, gallop, rubs, systolic murmur Internal Medicine: Result - Labs CBC & Chem 7: 08/18/17 04:58 08/18/17 04:58 Labs: Short CBC 08/18/17 Range/Units 04:58 WBC 7.0 (4.3-11.1) K/mcL Hgb 13.7 (11.5-15.4) g/dL Hct 41.3 (35.3-44.9) % Plt Count 254 (140-400) K/mcL Neutrophils # 4.0 (1.6-8.9) K/mcL BMP 08/18/17 04:58 Sodium 139 Potassium 4.2 Chloride 103 Carbon Dioxide 29 BUN 19 Creatinine 0.94 Glucose 142 H Calcium 9.6 Cardiac Enzymes 08/17/17 08/17/17 08/18/17 Range/Units 17:34 22:21 04:58 Troponin I < 0.03 < 0.03 < 0.03 (< 0.04) ng/mL Consult Discharge Plan - Plan Referrals: Sunshine Jean [Primary Care Provider] -
[2017-08-18] MEDS: *HR* Heparin 5,000 UNIT/ML VIAL SQ SCH (20:42)
[2017-08-18] MEDS ORDERED: Metoprolol XL (24 HR) Succ 25 MG TAB.ER.24H PO SCH (21:00)
[2017-08-18] MEDS ORDERED: Insulin LISPRO 300 UNITS/3 ML VIAL SQ SCH (21:00)
[2017-08-19] MEDS: *HR* Heparin 5,000 UNIT/ML VIAL SQ SCH (05:43)
[2017-08-19] MEDS: Pregabalin 50 MG CAPSULE PO SCH (08:32)
[2017-08-19] MEDS: Isosorbide MONOnitrate (24 HR) 60 MG TAB.ER.24H PO SCH (08:32)
[2017-08-19] MEDS: Aspirin 81 MG TAB.CHEW PO SCH (08:32)
[2017-08-19] MEDS: Insulin LISPRO 300 UNITS/3 ML VIAL SQ SCH ×2 (08:34→12:24)
--- NOTE | 2017-08-19 11:24 | Cardiology Progress Note ---
Date of Encounter: 08/19/17 Time of Encounter: 11:21 Assessment and Plan (1) CAD in [place] artery Current Visit: Yes Status: Acute [place] CAD, recent PCI to LAD (DIMAS x1). Returns with chest discomfort. No recurrent chest pain overnight. No missed doses of medications. Troponin negative. No Acute ECG changes. No current chest discomfort. Presentation is not c/w ACS. Limited TTE shows preserved EF, normal wall motion. No further inpatient cardiac testing appears necessary. Importance of aspirin/plavix discussed - one year without interruption, aspirin indefintely. Continue statin/BB/ARB/Imdur therapy. Cardiology signing off. Reconsult PRN. Follow-up as outpt in 2 weeks as already scheduled. (2) Chest pain Current Visit: Yes Status: Acute As above. Qualifiers: Chest pain type: unspecified Qualified Code(s): R07.9 - Chest pain, unspecified Discussion w patient/family: The assessment and plan as outlined above was discussed with the patient and/or family members who expressed understanding and agreement. All questions were answered. Thank you for involving us in the care of your patient. Please call with any questions. I will discuss all the above with Dr. Horn and make changes as necessary. Subjective Principal diagnosis: CAD, chest pain Interval history: Denies recurrent chest pain or vision changes overnight. Reports intermittent dyspnea and palpitations when rolling over. Reported a headache when lifting her arms above her head earlier. Limited echo resulted--EF remains normal, normal wall motion. Final report pending. Objective Vital Signs, Last 4 Hours Temp Pulse Resp BP Pulse Ox 08/19/17 07:25 97.8 F 71 16 118/74 100 Vital Signs Temp Pulse Resp BP Pulse Ox 08/19/17 07:25 97.8 F 71 16 118/74 100 08/19/17 03:43 98.3 F 72 16 106/67 98 08/18/17 23:07 97.6 F 90 16 101/65 96 08/18/17 19:38 98.2 F 84 16 129/81 99 08/18/17 15:51 97.7 F 98 18 121/79 94 08/18/17 12:12 97.6 F 80 16 147/78 97 Intake and Output 08/18/17 08/19/17 08/19/17 23:59 07:59 15:59 Intake Total 120 / 120 Balance 120 / 120 Intake: Oral 120 / 120 Other: Meal Breakfast Percent of Meal Consumed 100% Weight 104.326 kg Blood Glucose* 128 179 Patient Weight 08/19/17 23:59 Weight 104.326 kg General: Conversant, No Apparent Distress HEENT: Atraumatic, Normocephaly, Mucus Membranes Moist Neck: No JVD, Normal carotid pulses Cardiac: Reg Rate and Rhythm, Normal S1 and S2, No Murmur Lungs: Normal Breath Sounds, No Wheeze, Rales, Rhonchi Neuro: Alert and responsive, No focal deficits noted Abdomen: Soft, Non-Tender Skin: No rashes noted on visualized skin Musculoskeletal: No Chest Wall Tenderness Extremities: No Clubbing, No Cyanosis, No Edema, Normal Pulses Results 08/18/17 04:58 08/18/17 04:58 Impressions Echocardiogram Limited Views 08/19/17 12:58 Impressions: LVEF 60-65%. Normal LV chamber size, wall thickness and function. Left Ventricular Wall Motion: Rest Echo Findings All wall segments showed normal motion. Findings: Study Quality * Technically adequate exam. ECG Findings * Normal sinus rhythm. Left Ventricle * LVEF 60-65%. * Normal LV chamber size, wall thickness and function. Right Ventricle * Normal right ventricular structure and function. Left Atrium * Mildly dilated left atrium. Right Atrium * Normal right atrial size. Aorta * Normally sized aortic root. Pericardium * The pericardium appears normal. IVC * Normal IVC dimensions and inspiratory collapse. Active Medications Aspirin (Aspirin) 81 mg PO DAILY [facility] Stop: 02/17/18 09:01 Last Admin: 08/19/17 08:32 Dose: 81 mg Atorvastatin Calcium (Lipitor) 40 mg PO HS [facility] Stop: 02/17/18 21:01 Last Admin: 08/18/17 20:42 Dose: 40 mg Cilostazol (Pletal) 100 mg PO BID [facility] Stop: 02/17/18 09:01 Last Admin: 08/19/17 08:33 Dose: 100 mg Clopidogrel Bisulfate (Plavix) 75 mg PO DAILY [facility] Stop: 02/17/18 09:01 Last Admin: 08/19/17 08:32 Dose: 75 mg Duloxetine HCl (Cymbalta) 20 mg PO HS [facility] Stop: 02/17/18 21:01 Last Admin: 08/18/17 20:42 Dose: 20 mg Duloxetine HCl (Cymbalta) 60 mg PO QAM [facility] Stop: 02/17/18 09:01 Last Admin: 08/19/17 08:32 Dose: 60 mg Glucagon (Glucagen) 1 mg IM ONCE PRN PRN Reason: Hypoglycemia Stop: 02/16/18 16:43 Glucose (Gluctose) 15 gm PO ONCE PRN PRN Reason: Hypoglycemia Stop: 02/16/18 16:43 Heparin Sodium (Porcine) (Heparin) 5,000 unit SQ Q8HCO [facility] Stop: 02/17/18 22:01 Last Admin: 08/19/17 05:43 Dose: 5,000 unit Dextrose (Dextrose 5%) 1,000 mls @ 100 mls/hr IVC .Q10H PRN PRN Reason: HYPOGLYCEMIA Stop: 02/16/18 16:43 Insulin Human Lispro (Humalog) 0 units SQ TIDAC [facility] PRN Reason: Protocol Stop: 02/17/18 07:31 Last Admin: 08/19/17 08:34 Dose: 2 units Insulin Human Lispro (Humalog) 0 units SQ HS [facility] PRN Reason: Protocol Stop: 02/17/18 21:01 Last Admin: 08/18/17 20:48 Dose: Not Given Isosorbide Mononitrate (Imdur) 60 mg PO DAILY [facility] Stop: 02/17/18 09:01 Last Admin: 08/19/17 08:32 Dose: 60 mg Losartan Potassium (Cozaar) 25 mg PO HS [facility] PRN Reason: Protocol Stop: 02/17/18 21:01 Last Admin: 08/18/17 20:42 Dose: 25 mg Metoprolol Succinate (Toprol Xl) 25 mg PO HS [facility] Stop: 02/17/18 21:01 Last Admin: 08/18/17 20:42 Dose: 25 mg Naloxone HCl (Narcan) 0.4 mg IVP Q2MIN PRN PRN Reason: SEE COMMENTS Stop: 02/16/18 16:41 Nitroglycerin (Nitroglycerin) 0.4 mg SL Q5MIN PRN PRN Reason: Chest Pain Stop: 02/16/18 13:10 Last Admin: 08/17/17 13:29 Dose: 0.4 mg Pregabalin (Lyrica) 50 mg PO BID [facility] Stop: 02/17/18 09:01 Last Admin: 08/19/17 08:32 Dose: 50 mg Triamterene/HCTZ (Dyazide) 1 each PO QAM [facility] Stop: 02/17/18 09:01 Last Admin: 08/19/17 08:32 Dose: 1 each - Imaging and Cardiology Echo: report reviewed - EKG Interpretation EKG results cardiology: other (12 hr tele AVG HR 82, SR, no significant pauses or arrhythmias.) Consult Discharge Plan - Plan Referrals: Sunshine Jean [Primary Care Provider] -
[2017-08-19 11:47] VITALS: BP 112/65
--- NOTE | 2017-08-19 15:13 | Discharge Summary ---
Date of Encounter: 08/19/17 Time of Encounter: 11:00 - Discharge Diagnosis (1) Chest pain Priority: Primary Status: Acute Qualifiers: Chest pain type: unspecified Qualified Code(s): R07.9 - Chest pain, unspecified (2) Diabetes Priority: Secondary Status: Chronic Qualifiers: Diabetes mellitus type: type 2 Qualified Code(s): E11.9 - Type 2 diabetes mellitus without complications (3) HLD (hyperlipidemia) Priority: Secondary Status: Chronic Qualifiers: Hyperlipidemia type: unspecified Qualified Code(s): E78.5 - Hyperlipidemia , unspecified (4) HTN (hypertension) Priority: Secondary Status: Chronic Qualifiers: Hypertension type: essential hypertension Qualified Code(s): I10 - Essential (primary) hypertension (5) Obesity Priority: Secondary Status: Acute Qualifiers: Body mass index: BMI 37.0-37.9 Qualified Code(s): E66.9 - Obesity, unspecified; Z68.37 - Body mass index (BMI) 37.0-37.9, adult; Z68.37 - Body mass index (BMI) 37.0-37.9, adult (6) Mood disorder Priority: Secondary Status: Acute - Discharge Medications Home Medications: Losartan [Cozaar] 25 mg PO HS 02/25/15 [History] Triamterene/HCTZ 37.5/25mg [Dyazide] 1 tab PO QAM 02/25/15 [History] metFORMIN [Glucophage] 500 mg PO TID 02/25/15 [History] Aspirin 81 mg PO DAILY 06/01/16 [History] Atorvastatin [Lipitor] 40 mg PO HS 06/01/16 [History] Cilostazol [Pletal] 100 mg PO BID 06/01/16 [History] Metoprolol XL (24 HR) Succ [Toprol Xl] 25 mg PO HS 06/01/16 [History] Altagracia's Wort 300 mg PO TID 06/01/16 [History] glipiZIDE [Glipizide ER] 10 mg PO BID 06/01/16 [History] DULoxetine [Cymbalta] 20 mg PO HS 01/26/17 [History] Duloxetine HCl [Cymbalta] 60 mg PO QAM 01/26/17 [History] Percy-3/Dha/Epa/Fish Oil [Fish Oil 1,000 mg Softgel] 1 cap PO DAILY 01/26/17 [ History] Pregabalin [Lyrica] 50 mg PO BID 01/26/17 [History] Vitamin E Acetate [Vitamin E] 400 unit PO DAILY 01/26/17 [History] Isosorbide MONOnitrate (24 HR) [Imdur] 60 mg PO DAILY #0 01/27/17 [Rx] Clopidogrel [Plavix] 75 mg PO DAILY #30 tablet 08/09/17 [Rx] Allergies/Adverse Reactions: 3 Allergy/AdvReac Type Severity Reaction Status Date / Time aspartame AdvReac Headache Verified 06/01/16 10:21 gabapentin AdvReac Gastrointestinal Verified 01/26/17 17:10 Upset Procedures/tests Complete & Pending: Procedures Performed prior 72 hours Category Date Time Status EKG [ECG 12 lead ECG] [ECG] Stat Y 08/17/17 20:04 Completed EV limited echocardiogram Routine Y 08/19/17 12:58 Completed Date of admission: 08/17/17 14:43 Primary care physician: Sunshine Jean - Patient Status Disposition: Home, Self-Care Condition: Fair - Discharge Instructions Instructions: Angina (DC), Stress (DC), Mood Disorders (DC) Follow Up With: Sunshine Jean [Primary Care Provider] - Additional Instructions: Follow-up appointments: If there is not an appointment listed below, please call your physician and schedule a follow-up appointment. If you have congestive heart failure and your symptoms return, make an appointment with your physician. Medication List: Carry an up to date list of medications you are taking at all time. We have given you an updated medication list including any new medications that you have been prescribed. Please provide that list to your primary provider Symptoms: If your condition changes or you experience any of the following symptoms, notify your physician immediately: Unusual or worsening pain, fever, persistent nausea and vomiting, bleeding, increase in swelling (especially in your legs), sudden weight gain, extreme dizziness, chest pain, increased drainage or redness from a wound or incision. Go to the emergency department if you experience a problem with breathing. Weights: If you have a history of swelling or shortness of breath, weigh yourself daily and notify your physician if you have a weight gain of two or more pounds in one day or 5 or more pounds in a week. If you experience any of the warning signs for stroke: Sudden numbness or weakness of the face, arm or leg; especially on one side of the body, sudden confusion, trouble speaking or understanding, sudden trouble seeing in one or both eyes, sudden trouble walking, dizziness, loss of balance or coordination, sudden sever headache with no cause; Call 911 or go to the emergency room. Stroke is a medical emergency. Some risk factors for stroke: Age, cigarette smoking, diabetes, excessive alcohol consumption, family history , high blood pressure, overweight, physical inactivity, prior stroke, heart attack, diagnosis of carotid artery stenosis or other artery disease. If you smoke, STOP: Smoking or tobacco use significantly increases your risk of heart and lung disease. Your chance of disease greatly increases if you continue to smoke. For more information, call the [employer] quit line for smoking cessation -NOW ( ) Hospital course: Patient is a 61-year-old female with past medical history significant for coronary artery disease, hypertension, hyperlipidemia and diabetes who presents to the ER on 08/17/17 with chest pain. Patient reports a 3 day history of substernal chest pain which occurs with exertion and is relieved with rest. Patient reports the severity of 5 out of 10 with radiation to her left axilla. She reports associated symptoms of shortness of breath. Patient had a recent cardiac catheter on 08/09/17 which showed severe one-vessel coronary arterial disease and DIMAS was place in the mid left anterior descending coronary artery. In the ER, patient was found to have negative troponin 1. Patient will be admitted to the medical surgical floor for ACS rule out. During patients hospital stay, her symptoms of chest pain resolved and her cardiac biomarkers were negative. Cardiology was consulted with recommendations for echocardiogram showed preserved EF with normal wall motion. Recommendations for patient to continue on interrupted aspirin and Plavix in addition to continuing statin, beta deysi, ARB and Imdur. She will be discharged to follow up for primary care provider in addition to cardiology as an outpatient. - Time Spent with Patient Total time spent providing and/or coordinating discharge services: Less than 30 minutes - Constitutional Vitals: Temp Pulse Resp BP Pulse Ox 97.9 F 98 18 112/65 95 08/19/17 11:46 08/19/17 11:46 08/19/17 11:46 08/19/17 11:46 08/19/17 11:46 General appearance: Present: A&O X 3, no acute distress, answers questions appropriately - Eye Eye exam: Present: normal appearance, PERRL, conjuntiva pink, sclera anicteric Pupils: Present: PERRL - Respiratory Respiratory exam: Present: CTAB. Absent: accessory muscle use, rales, rhonchi, wheezes - Cardiovascular Cardiovascular exam: Present: RRR, +S1, +S2. Absent: diastolic murmur, gallop, rubs, systolic murmur
--- NOTE | 2017-08-23 08:03 | Electrocardiograph Report ---
[place] [id number] Test Date: 2017-08-17 Pat Name: Chata Brewer Department: 102 Room: 3B Gender: F Genetic Physician: Betty : 1955 Requested By: Katelyn Greco Order Number: [id number] Reading MD: Oneal Horn DO Measurements Intervals [place] Rate: 93 P: 45 TX: 140 QRS: -13 QRSD: 81 T: 67 QT: 340 QTc: 391 Interpretive Statements SINUS RHYTHM POOR R WAVE PROGRESSION Electronically Signed On 08-23-2017 8:01:49 EST by Oneal Horn DO
--- NOTE | 2017-08-23 09:03 | Electrocardiograph Report ---
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
== END 2017-08-19 15:50 | disposition home or self-care (01) ==
LOC: EMEROO 12:35 → 3BNU 12:35 → SUATTDRO 14:43 → 3BNU 15:56
PROVIDERS: ADMIT Hospitalist; ATTEND Hospitalist

== ENCOUNTER 2020-12-18 22:01 | Observation (INO) ==
[2020-12-19] MEDS ORDERED: *HR* Dextrose 50 % in Water (Vial) 50 ML VIAL IVP PRN (01:58)
[2020-12-19] MEDS ORDERED: D5% in Water 1,000 ML IVC PRN (01:58)
[2020-12-19] MEDS ORDERED: Dextrose Gel 15 GM/37.5 ML TUBE PO PRN ×2 (01:58)
[2020-12-19] MEDS ORDERED: Insulin LISPRO 300 UNITS/3 ML VIAL SUBQ SCH (02:00)
[2020-12-19] MEDS ORDERED: Perflutren Lipid Microsphere 1.3 ML in 0.9 % Sodium Chloride 8.7 ML IVP PRN (02:04)
[2020-12-19] MEDS ORDERED: Ondansetron 4 MG/2 ML VIAL IVP PRN (02:05)
[2020-12-19] MEDS ORDERED: Acetaminophen 325 MG TABLET PO PRN (02:05)
[2020-12-19] MEDS ORDERED: Naloxone 0.4 MG/ML INJ IVP PRN (02:05)
[2020-12-19 02:44] LABS: Estimated Average Glucose 137 mg/dl; Hemoglobin A1C 6.4 %
[2020-12-19 02:53] LABS: Hematocrit 38.9 % (35.3-44.9); Hemoglobin 13.4 g/dL (11.5-15.4); Mean Corpuscular HGB Conc 34.4 g/dL (31.6-35.5); Mean Corpuscular Hemoglobin 29.3 pg (28.0-33.3); Mean Corpuscular Volume 84.9 fL (83.0-100.0); Mean Platelet Volume 9.6 fL (9.4-12.4); Platelet Count 238 K/mcL (140-400); Red Blood Count 4.58 M/mcL (3.82-4.97); Red Cell Distribution Width 13.4 % (11.5-14.5); White Blood Count 7.4 K/mcL (4.3-11.1)
[2020-12-19 03:00] LABS: INR 1.2; Prothrombin Time 13.5 Seconds (9.4-12.1)
[2020-12-19 03:03] LABS: Activated Partial Thrombo Time 26.2 Seconds (26.0-36.0)
[2020-12-19 03:14] LABS: BUN/Creatinine Ratio 18 (6-26); Blood Urea Nitrogen 15 mg/dL (8-23); Calcium 9.2 mg/dL (8.6-10.3); Carbon Dioxide 27 mEq/L (23-29); Chloride 99 mEq/L (98-107); Chol/HDL Ratio 2.8 (0-4.9); Cholesterol 119 mg/dL (< 200); Glucose 131 mg/dL (70-105); HDL Cholesterol 43 mg/dL (40-59); LDL Cholesterol,Calculated 61 mg/dL (< 100); Magnesium 1.9 mg/dL (1.6-2.6); Osmolality,Calculated 283 (280-300); Phosphorous 3.8 mg/dL (2.7-4.5); Potassium 3.2 mEq/L (3.5-5.1); Sodium 135 mEq/L (136-145); Triglycerides 76 mg/dL (< 150); eGFR For African Americans > 60 (> 60); eGFR For Non-African Americans > 60 (> 60)
[2020-12-19 03:15] LABS: Albumin 3.9 g/dL (3.5-5.7); Albumin/Globulin Ratio 1.1 (1.1-2.2); Bilirubin,Direct 0.2 mg/dL (0.0-0.2); Bilirubin,Indirect 0.6 mg/dL (0.0-1.0); Bilirubin,Total 0.8 mg/dL (0.3-1.0); Globulin 3.4 g/dL (2.4-3.5); Total Protein 7.3 g/dL (6.4-8.9)
[2020-12-19 03:18] LABS: % Iron Saturation 13 % (15-50); Iron 47 mcg/dL (50-170); Transferrin 268 mg/dL (203-362)
[2020-12-19 03:33] LABS: Ferritin 59 ng/mL (10-120)
[2020-12-19 03:45] LABS: Folate > 22.3 ng/mL (3.0-16.0); Vitamin B12 533 pg/mL (250-1100)
[2020-12-19] MEDS: *HR* Heparin 5,000 UNIT/ML VIAL SQ SCH ×2 (05:08→13:00)
[2020-12-19] MEDS: Insulin LISPRO 300 UNITS/3 ML VIAL SUBQ SCH ×2 (07:07→11:16)
[2020-12-19] MEDS ORDERED: Aspirin 81 MG TAB.CHEW PO SCH (09:00)
[2020-12-19] MEDS ORDERED: Pregabalin 75 MG CAPSULE PO SCH (10:00)
[2020-12-19 10:52] VITALS: BP 101/63
== END 2020-12-19 14:34 | disposition home or self-care (01) ==
LOC: 3BNU → SUATTDRO 12-19 00:15
PROVIDERS: ADMIT Internal Medicine; ATTEND Internal Medicine